=== PATIENT | female | born 1950 | race Caucasian/White ===

== ENCOUNTER 2017-04-07 21:29 | Emergency (ER) | payer MEDICARE, MEDICAID ==
[~2017-04-07] VITALS: Wt 82.1 kg
[~2017-04-07 21:29] MED LIST: AMBIEN10 M1 PO; ASPIRIN81 M1 PO; CEPACOL2 M1 PO; CIPRO500 MG PO; DIFLUCAN150 MG PO; FLAGYL500 MG PO; HYDROCODONE BIT1 T11 PO; HYDRODIURIL25 MG PO; K + POTASSIUM20 MEQ PO; LOVENOX40 MG/0.4 SC; MACRODANTIN100 M1 PO; PAXIL10 MG PO; PERCOCET 325 MG1 TA2 PO; PREDNICOT20 MG PO; PREDNISONE10 MG PO; PRILOSEC20 MG PO; ROBITUSSIN DM 105 ML PO; SYNTHROID,LEV112 MCG PO; ZITHROMAX Z PA250 MG PO; ZOFRAN4 MG PO
[2017-04-07] MEDS ORDERED: NAPROSYN EC375 MG PO (21:56)
[2017-04-07] MEDS ORDERED: NORCO 5-325 TA1 EACH PO (21:56)
[2017-04-08] MEDS ORDERED: NORCO 5-325 TA1 EACH PO (16:53)
== END 2017-04-07 22:42 | disposition home or self-care (01) ==
LOC: ED 21:29
DX: M53.3 Sacrococcygeal disorders, not elsewhere classified (principal); F17.200 Nicotine dependence, unspecified, uncomplicated; Z88.0 Allergy status to penicillin; Z88.8 Allergy status to other drugs, medicaments and biological substances; Z79.82 Long term (current) use of aspirin

== ENCOUNTER 2017-05-04 20:18 | Emergency (ER) | payer MEDICARE, MEDICAID ==
[~2017-05-04] VITALS: Wt 82.1 kg
[~2017-05-04 20:18] MED LIST changes: +NAPROSYN EC375 MG PO; +NORCO 5-325 TA1 EACH PO
[2017-05-04 21:13] LABS: BILIRUBIN 1+ (NEGATIVE); BLOOD NEGATIVE (NEGATIVE); CLARITY CLOUDY (CLEAR); COLOR YELLOW (YELLOW); GLUCOSE NEGATIVE (NEGATIVE); KETONE NEGATIVE (NEGATIVE); LEUKO ESTERASE TRACE (NEGATIVE); NITRITE NEGATIVE (NEGATIVE); SPECIFIC GRAVITY 1.025 (1.005-1.030); UROBILINOGEN 0.2 E.U./dl (0.2-1.0)
[2017-05-04 21:17] LABS: BACTERIA TRACE
[2017-05-04 21:30] LABS: BASO % 0.5 % (0.0-1.0); EOS # 0.2 10*3/uL (0.0-0.4); EOS % 1.9 % (1.0-4.0); HEMATOCRIT 41.3 % (37.0-47.0); HEMOGLOBIN 13.4 g/dl (12.0-16.0); LYMPH # 3.6 10*3/uL (1.3-4.4); LYMPH % 42.7 % (27.0-41.0); MEAN CELL VOLUME 94.5 fl (81.0-99.0); MEAN CORPUSCULAR HGB 30.7 pg (27.0-31.0); MEAN CORPUSCULAR HGB CONC 32.4 g/dl (33.0-37.0); MEAN PLATELET VOLUME 10.5 fl (9.6-12.3); MONO # 0.6 10*3/uL (0.1-1.0); MONO % 6.5 % (3.0-9.0); NEUT # 4.1 10*3/uL (2.3-7.9); NEUT % 48.2 % (47.0-73.0); PLATELET COUNT AUTOMATED 188 10*3/uL (130-400); RED BLOOD COUNT 4.37 10*6/uL (4.10-5.10); RED CELL DISTRI WIDTH 12.7 % (0-14.5); WHITE BLOOD COUNT 8.5 10*3/uL (4.8-10.8)
[2017-05-04 21:45] LABS: ALBUMIN 3.7 gm/dl (3.1-4.5); ALKALINE PHOSPHATASE 79 U/L (45-117); BUN 13 mg/dl (7-24); CHLORIDE 105 mmol/L (98-107); CREATININE 0.89 mg/dL (0.55-1.02); POTASSIUM 3.8 mmol/L (3.5-5.1); SGOT/AST 11 IU/L (3-35); SGPT/ALT 16 U/L (12-78); SODIUM 139 mmol/L (136-145); TOTAL PROTEIN 7.1 gm/dL (6.4-8.2)
[2017-05-04] MEDS ORDERED: CIPRO500 MG PO (22:12)
[2017-05-04] MEDS ORDERED: NORCO 5-325 TA1 EACH PO (22:12)
== END 2017-05-04 22:38 | disposition home or self-care (01) ==
LOC: ED 20:18
PROVIDERS: Physician Assistant
DX: N39.0 Urinary tract infection, site not specified (principal); M54.5 Low back pain; F17.200 Nicotine dependence, unspecified, uncomplicated; Z79.82 Long term (current) use of aspirin; Z79.899 Other long term (current) drug therapy; Z88.0 Allergy status to penicillin; Z88.6 Allergy status to analgesic agent

== ENCOUNTER 2017-05-23 17:56 | Emergency (ER) | payer MEDICARE ==
[~2017-05-23] VITALS: Ht 160 cm; Wt 81.6 kg
[2017-05-23 18:42] LABS: BASO % 0.4 % (0.0-1.0); EOS # 0.2 10*3/uL (0.0-0.4); EOS % 1.9 % (1.0-4.0); HEMATOCRIT 33.6 % (37.0-47.0); HEMOGLOBIN 11.1 g/dl (12.0-16.0); LYMPH # 2.9 10*3/uL (1.3-4.4); LYMPH % 35.1 % (27.0-41.0); MEAN CELL VOLUME 93.1 fl (81.0-99.0); MEAN CORPUSCULAR HGB 30.7 pg (27.0-31.0); MEAN PLATELET VOLUME 10.3 fl (9.6-12.3); MONO # 0.5 10*3/uL (0.1-1.0); MONO % 6.2 % (3.0-9.0); NEUT # 4.6 10*3/uL (2.3-7.9); NEUT % 55.9 % (47.0-73.0); PLATELET COUNT AUTOMATED 197 10*3/uL (130-400); RED BLOOD COUNT 3.61 10*6/uL (4.10-5.10); RED CELL DISTRI WIDTH 12.3 % (0-14.5); WHITE BLOOD COUNT 8.2 10*3/uL (4.8-10.8)
[2017-05-23 18:55] LABS: ALBUMIN 3.1 gm/dl (3.1-4.5); ALKALINE PHOSPHATASE 70 U/L (45-117); BUN 13 mg/dl (7-24); CHLORIDE 109 mmol/L (98-107); CREATININE 0.73 mg/dL (0.55-1.02); POTASSIUM 3.6 mmol/L (3.5-5.1); SGOT/AST 10 IU/L (3-35); SGPT/ALT 14 U/L (12-78); SODIUM 142 mmol/L (136-145); TOTAL PROTEIN 6.5 gm/dL (6.4-8.2)
[2017-05-23] MEDS ORDERED: DOXYCYCLINE100 M3 PO (20:22)
[2017-05-23] MEDS ORDERED: CLARITIN10 MG PO (20:22)
[2017-05-23] MEDS ORDERED: CHERATUSSIN AC118 M1 PO (20:22)
== END 2017-05-23 20:12 | disposition home or self-care (01) ==
LOC: ED 17:56
PROVIDERS: Nurse Practitioner
DX: J40 Bronchitis, not specified as acute or chronic (principal); Z88.0 Allergy status to penicillin; Z79.82 Long term (current) use of aspirin; F17.210 Nicotine dependence, cigarettes, uncomplicated

== ENCOUNTER → 2017-09-11 | Outpatient (CLI) | payer MEDICARE ==
[~2017-09-11] MED LIST changes: +CHERATUSSIN AC118 M1 PO; +CLARITIN10 MG PO; +DOXYCYCLINE100 M3 PO
== END | disposition home or self-care (01) ==
LOC: RAD 16:09
DX: M25.552 Pain in left hip (principal); Z96.642 Presence of left artificial hip joint

== ENCOUNTER → 2018-01-05 | Day surgery (SDC) | payer MEDICARE ==
[~2018-01-05] VITALS: Ht 160 cm; Wt 89.4 kg
[~2018-01-05] MED LIST changes: +IBU800 MG PO; +NICODERM CQ1 EAC2 TD; +OMEPRAZOLE40 MG PO; -PRILOSEC20 MG PO; -SYNTHROID,LEV112 MCG PO; +SYNTHROID,LEV125 MCG PO; +TRAZODONE50 MG PO; +ZOCOR40 MG PO
--- NOTE | ~2018-01-05 | PROC NOTE ---
[place], [place] PROCEDURE NOTE NAME: [facility]NAS [id number] UNIT #: [id number] ROOM: DOCTOR: JUAN DAVID TIRADO MD BIRTHDATE: [birth year] DOS: 01/05/2018 PREOPERATIVE DIAGNOSIS: History of colonic polyps. POSTOPERATIVE DIAGNOSES: Diverticulosis, colonic polyps x 4. PROCEDURE: Colonoscopy with polypectomy x 4. ENDOSCOPIST: Juan David Tirado MD LEGAL RESEARCHER: ALO. ANESTHESIA: MAC. INDICATIONS: This is a 67-year-old lady who had a past history of colonic polyps that were removed during a colonoscopy in 2008, who is here for another examination. The procedure and its complications were explained to the patient in detail preoperatively. Complications that were discussed included but were not limited to bleeding, missed lesions, colonic perforation and prolonged pain. She agreed to proceed. DESCRIPTION OF PROCEDURE: After identifying the patient, the patient was brought to the endoscopy suite and placed in the left lateral position. After IV sedation was administered by the anesthesia team, a timeout procedure was called and a digital rectal exam was performed. An adult colonoscope was now introduced into the anal canal and advanced sequentially into the rectum, sigmoid colon, descending colon, transverse colon and ascending colon, up to the cecum. Upon reaching the cecum, the scope was withdrawn. Total withdrawal time was approximately 10 minutes. Four polyps were removed. There was a first polyp that was seen at 100 cm from the anal verge that was removed with the help of biopsy forceps and sent for histopathological diagnosis. Upon further withdrawal, another polyp was seen at 60 cm from the anal verge and this was also removed with the help of biopsy forceps and sent for histopathological diagnosis. Upon further withdrawal of the scope, sigmoid diverticulosis was encountered with no complications. A polyp was visualized at 28 cm, which was removed with the help of a polypectomy forceps and sent for histopathological diagnosis. A larger polyp was also encountered in the same region at 28 cm from the anal verge, which was removed with the help of a snare and sent for histopathological diagnosis. Hemostasis was confirmed. Thereafter, the scope was withdrawn and the patient was taken to the recovery room in stable fashion. Based on these findings, the patient is recommended to have another colonoscopy in the next 1-3 years. I will talk to the patient about this in the postoperative visit. These findings were discussed with the patient's niece in the postoperative recovery room. [place], [place] PROCEDURE NOTE NAME: EDWINA CANAS UNIT #: [id number] ROOM: DOCTOR: JUAN DAVID TIRADO MD BIRTHDATE: [birth year] Juan David Tirado MD CM:PROCNOTE:PROCEDURE NOTE [id number] JUAN DAVID TIRADO MD
[2018-01-05 07:12] VITALS: BP 140/53
[2018-01-05 07:50] VITALS: BP 134/53
[2018-01-05 08:00] VITALS: BP 142/45
[2018-01-05 08:16] VITALS: BP 153/69
== END | disposition home or self-care (01) ==
LOC: SDC 01-03 08:00
DX: Z12.11 Encounter for screening for malignant neoplasm of colon (principal); D12.5 Benign neoplasm of sigmoid colon; D12.3 Benign neoplasm of transverse colon; D12.4 Benign neoplasm of descending colon; K63.5 Polyp of colon; I10 Essential (primary) hypertension; E07.9 Disorder of thyroid, unspecified; K21.9 Gastro-esophageal reflux disease without esophagitis; H40.9 Unspecified glaucoma; F17.210 Nicotine dependence, cigarettes, uncomplicated; F32.9 Major depressive disorder, single episode, unspecified; F41.9 Anxiety disorder, unspecified; Z88.0 Allergy status to penicillin; Z87.01 Personal history of pneumonia (recurrent); Z86.010 Personal history of colon polyps; Z98.890 Other specified postprocedural states; Z82.49 Family history of ischemic heart disease and other diseases of the circulatory system; Z79.899 Other long term (current) drug therapy; Z96.643 Presence of artificial hip joint, bilateral

== ENCOUNTER → 2018-04-25 | Outpatient (CLI) | payer MEDICARE ==
[~2018-04-25] MED LIST changes: +LEVOXYL112 MCG PO; +VITAMIN D-32000 UNIT PO
--- NOTE | ~2018-04-25 | EKG ---
[place], [place] ELECTROCARDIOGRAM REPORT NAME: EDWINA CANAS UNIT #: [id number] ROOM: DOCTOR: EPIPHANY DRAFT REPORT BIRTHDATE: [birth year] [facility] Test Date: 2018-04-25 Test Time: 11:39:54 Pat Name: EDWINA CANAS Department: Room: [facility] Gender: F Electronic Field Service Engineer: Janie Wesley : 1950 Requested By: RENZO MARTINS Order Number: [id number] Reading MD: Castillo Crabtree MD Measurements Intervals [place] Rate: 60 P: 49 CA: 158 QRS: 46 QRSD: 94 T: 56 QT: 416 QTc: 416 Interpretive Statements Sinus rhythm Low voltage, precordial leads Baseline wander in lead(s) V5,n Electronically Signed On 05-01-2018 4:58:57 PDT by Castillo Crabtree MD CM:EKGRPT:ELECTROCARDIOGRAM REPORT [id number] RENZO MARTINS EPIPHANY DRAFT REPORT RENZO MARTINS
== END | disposition home or self-care (01) ==
LOC: CARD 11:12
DX: R06.2 Wheezing (principal); I10 Essential (primary) hypertension; Z72.0 Tobacco use

== ENCOUNTER → 2018-05-21 | Outpatient (CLI) | payer MEDICARE | END | disposition home or self-care (01) | LOC: ORTHO 00:37 | DX: M47.896 Other spondylosis, lumbar region (principal); M16.11 Unilateral primary osteoarthritis, right hip ==

== ENCOUNTER → 2018-06-01 | Outpatient (CLI) | payer MEDICARE | END | disposition home or self-care (01) | LOC: MRI 05-25 13:00 | DX: M16.11 Unilateral primary osteoarthritis, right hip (principal); R20.0 Anesthesia of skin; R20.2 Paresthesia of skin; M25.551 Pain in right hip ==

== ENCOUNTER → 2018-06-14 | Outpatient (CLI) | payer MEDICARE | END | disposition home or self-care (01) | LOC: MRI 13:01 | DX: M48.061 Spinal stenosis, lumbar region without neurogenic claudication (principal); M51.26 Other intervertebral disc displacement, lumbar region; M47.896 Other spondylosis, lumbar region; M19.90 Unspecified osteoarthritis, unspecified site; M79.651 Pain in right thigh; Z96.642 Presence of left artificial hip joint ==

== ENCOUNTER → 2020-03-19 | Outpatient (CLI) | payer MEDICARE | END | disposition home or self-care (01) | LOC: RAD 10:18 | DX: M16.11 Unilateral primary osteoarthritis, right hip (principal); M85.68 Other cyst of bone, other site; M25.751 Osteophyte, right hip ==

== ENCOUNTER → 2020-05-15 | Outpatient (CLI) | payer MEDICARE | END | disposition home or self-care (01) | LOC: CARD 10:14 | PROVIDERS: ATTEND Nurse Practitioner Family | DX: M25.551 Pain in right hip (principal); E03.9 Hypothyroidism, unspecified; E78.00 Pure hypercholesterolemia, unspecified; Z72.0 Tobacco use ==

== ENCOUNTER → 2020-06-15 | Outpatient (CLI) | payer MEDICARE ==
[~2020-06-15] MED LIST changes: +ASPIRIN ADULT L81 M2 PO; +HYDROXYZINE HCL25 MG PO; +MELOXICAM15 MG PO; +PERCOCET 7.5-31 EACH PO; +ROPINIROLE HY0.25 MG PO; +VITAMIN D3125 MC1 PO
== END | disposition home or self-care (01) ==
LOC: COVID19 00:54
PROVIDERS: ATTEND Orthopaedic Surgery
DX: Z20.828 Contact with and (suspected) exposure to other viral communicable diseases (principal)

== ENCOUNTER 2020-06-18 05:15 | Inpatient (IN) | payer MEDICARE ==
[~2020-06-18] VITALS: Ht 160 cm; Wt 92.0 kg
[2020-06-18] VITALS (10 sets, daily range): BP systolic 114–152; BP diastolic 50–63
[~2020-06-18 05:15] MED LIST changes: -ASPIRIN ADULT L81 M2 PO; -PERCOCET 7.5-31 EACH PO; -ROPINIROLE HY0.25 MG PO; -VITAMIN D3125 MC1 PO
[2020-06-19] VITALS: BP 137/55
[2020-06-19 06:33] LABS: BASO % 0.3 % (0.0-1.0); EOS % 0.4 % (1.0-4.0); HEMATOCRIT 35.3 % (37.0-47.0); LYMPH # 1.3 10*3/uL (1.3-4.4); LYMPH % 14.6 % (27.0-41.0); MEAN CELL VOLUME 86.5 fl (81.0-99.0); MEAN CORPUSCULAR HGB 27.7 pg (27.0-31.0); MEAN PLATELET VOLUME 10.5 fl (9.6-12.3); MONO # 0.9 10*3/uL (0.1-1.0); MONO % 9.3 % (3.0-9.0); NEUT # 6.8 10*3/uL (2.3-7.9); NEUT % 75.1 % (47.0-73.0); PLATELET COUNT AUTOMATED 119 10*3/uL (130-400); RED BLOOD COUNT 4.08 10*6/uL (4.10-5.10); RED CELL DISTRI WIDTH 14.1 % (0-14.5); WHITE BLOOD COUNT 9.1 10*3/uL (4.8-10.8)
[2020-06-19 07:03] LABS: BUN 8 mg/dl (7-24); CHLORIDE 102 mmol/L (98-107); CREATININE 0.74 mg/dL (0.55-1.02); SODIUM 132 mmol/L (136-145)
[2020-06-19 08:00] VITALS: BP 134/52
[2020-06-19 12:00] VITALS: BP 146/49
[2020-06-19 16:00] VITALS: BP 138/57
[2020-06-19 20:00] VITALS: BP 160/59
[2020-06-20] VITALS: BP 137/58
[2020-06-20 06:25] LABS: BASO % 0.3 % (0.0-1.0); EOS # 0.1 10*3/uL (0.0-0.4); EOS % 0.8 % (1.0-4.0); HEMATOCRIT 32.7 % (37.0-47.0); LYMPH # 1.6 10*3/uL (1.3-4.4); LYMPH % 17.5 % (27.0-41.0); MEAN CELL VOLUME 87.4 fl (81.0-99.0); MEAN CORPUSCULAR HGB 28.3 pg (27.0-31.0); MEAN CORPUSCULAR HGB CONC 32.4 g/dl (33.0-37.0); MEAN PLATELET VOLUME 10.3 fl (9.6-12.3); MONO % 11.1 % (3.0-9.0); NEUT # 6.4 10*3/uL (2.3-7.9); PLATELET COUNT AUTOMATED 103 10*3/uL (130-400); RED BLOOD COUNT 3.74 10*6/uL (4.10-5.10); RED CELL DISTRI WIDTH 14.2 % (0-14.5); WHITE BLOOD COUNT 9.1 10*3/uL (4.8-10.8)
[2020-06-20 06:39] LABS: BUN 9 mg/dl (7-24); CHLORIDE 102 mmol/L (98-107); CREATININE 0.67 mg/dL (0.55-1.02); POTASSIUM 4.2 mmol/L (3.5-5.1); SODIUM 133 mmol/L (136-145)
[2020-06-20 08:00] VITALS: BP 116/42
[2020-06-20 12:00] VITALS: BP 129/63
[2020-06-20 16:00] VITALS: BP 131/68
[2020-06-20 20:00] VITALS: BP 146/64
[2020-06-21] VITALS: BP 137/51
[2020-06-21 06:53] LABS: BASO % 0.5 % (0.0-1.0); EOS # 0.1 10*3/uL (0.0-0.4); EOS % 1.2 % (1.0-4.0); HEMATOCRIT 32.7 % (37.0-47.0); LYMPH # 1.7 10*3/uL (1.3-4.4); LYMPH % 21.3 % (27.0-41.0); MEAN CELL VOLUME 87.2 fl (81.0-99.0); MEAN CORPUSCULAR HGB CONC 32.1 g/dl (33.0-37.0); MEAN PLATELET VOLUME 11.6 fl (9.6-12.3); MONO # 0.9 10*3/uL (0.1-1.0); MONO % 11.1 % (3.0-9.0); NEUT # 5.3 10*3/uL (2.3-7.9); NEUT % 65.5 % (47.0-73.0); PLATELET COUNT AUTOMATED 113 10*3/uL (130-400); RED BLOOD COUNT 3.75 10*6/uL (4.10-5.10)
[2020-06-21 08:00] VITALS: BP 114/59
[2020-06-21 12:00] VITALS: BP 122/45
[2020-06-21 16:00] VITALS: BP 124/49
[2020-06-21 20:00] VITALS: BP 142/59
[2020-06-22] VITALS: BP 132/47
[2020-06-22 06:30] LABS: BASO % 0.5 % (0.0-1.0); EOS # 0.2 10*3/uL (0.0-0.4); EOS % 3.1 % (1.0-4.0); HEMATOCRIT 31.5 % (37.0-47.0); LYMPH # 1.7 10*3/uL (1.3-4.4); LYMPH % 29.1 % (27.0-41.0); MEAN CELL VOLUME 88.2 fl (81.0-99.0); MEAN CORPUSCULAR HGB 28.6 pg (27.0-31.0); MEAN CORPUSCULAR HGB CONC 32.4 g/dl (33.0-37.0); MEAN PLATELET VOLUME 10.6 fl (9.6-12.3); MONO # 0.8 10*3/uL (0.1-1.0); MONO % 12.9 % (3.0-9.0); NEUT # 3.2 10*3/uL (2.3-7.9); NEUT % 54.1 % (47.0-73.0); PLATELET COUNT AUTOMATED 145 10*3/uL (130-400); RED BLOOD COUNT 3.57 10*6/uL (4.10-5.10); RED CELL DISTRI WIDTH 13.6 % (0-14.5); WHITE BLOOD COUNT 5.9 10*3/uL (4.8-10.8)
[2020-06-22 08:00] VITALS: BP 151/52
[2020-06-22 12:00] VITALS: BP 134/52
[2020-06-22] MEDS ORDERED: PERCOCET 7.5-31 EACH PO (12:09)
[2020-06-22] MEDS ORDERED: VITAMIN D3125 MC1 PO (12:09)
[2020-06-22] MEDS ORDERED: ASPIRIN ADULT L81 M2 PO (12:09)
[2020-06-22] MEDS ORDERED: ROPINIROLE HY0.25 MG PO (12:09)
== END 2020-06-22 14:29 | disposition other institution (70) | DRG 470 ==
LOC: SDC 05:15 → 4E 06:50 → SDC 07:30 → 4E 07:45 → SDC 08:30 → 4E 17:37
PROVIDERS: Internal Medicine; Orthopaedic Surgery; ADMIT Family Medicine; ATTEND Family Medicine
PROC: 0SR90JZ Replacement of Right Hip Joint with Synthetic Substitute, Open Approach (ICD-10-PCS; principal; 2020-06-18)
DX: M16.11 Unilateral primary osteoarthritis, right hip (principal); E87.1 Hypo-osmolality and hyponatremia; K21.9 Gastro-esophageal reflux disease without esophagitis; R73.9 Hyperglycemia, unspecified; E03.9 Hypothyroidism, unspecified; Z96.642 Presence of left artificial hip joint; F17.210 Nicotine dependence, cigarettes, uncomplicated; E55.9 Vitamin D deficiency, unspecified; E78.5 Hyperlipidemia, unspecified; Z47.1 Aftercare following joint replacement surgery; Z82.49 Family history of ischemic heart disease and other diseases of the circulatory system; Z88.0 Allergy status to penicillin; Z88.8 Allergy status to other drugs, medicaments and biological substances; Z79.899 Other long term (current) drug therapy

== ENCOUNTER → 2020-07-09 | Outpatient (CLI) | payer MEDICARE ==
[~2020-07-09] MED LIST changes: +ASPIRIN ADULT L81 M2 PO; +PERCOCET 7.5-31 EACH PO; +ROPINIROLE HY0.25 MG PO; +VITAMIN D3125 MC1 PO
== END | disposition home or self-care (01) ==
LOC: ORTHO 00:32
PROVIDERS: ATTEND Orthopaedic Surgery
DX: M25.551 Pain in right hip (principal); Z96.641 Presence of right artificial hip joint

== ENCOUNTER → 2020-07-31 | Outpatient (CLI) | payer MEDICARE | END | disposition home or self-care (01) | LOC: ORTHO 00:09 | PROVIDERS: ATTEND Orthopaedic Surgery | DX: Z09 Encounter for follow-up examination after completed treatment for conditions other than malignant neoplasm (principal); Z96.641 Presence of right artificial hip joint ==

== ENCOUNTER → 2020-08-27 | Outpatient (CLI) | payer MEDICARE | END | disposition home or self-care (01) | LOC: RAD 13:08 | PROVIDERS: ATTEND Nurse Practitioner Family | DX: M25.511 Pain in right shoulder (principal) ==

== ENCOUNTER → 2020-09-11 | Outpatient (CLI) | payer MEDICARE ==
[~2020-09-11] MED LIST changes: +HYDROCODONE-AC1 EAC1 PO
== END | disposition home or self-care (01) ==
LOC: ORTHO 00:53
PROVIDERS: ATTEND Orthopaedic Surgery
DX: Z47.1 Aftercare following joint replacement surgery (principal); Z98.890 Other specified postprocedural states

== ENCOUNTER → 2020-10-27 | Outpatient (CLI) | payer MEDICARE ==
[2020-10-27 18:54] LABS: IRON 78 ug/dL (50-170); TOTAL IRON BINDING CAPACITY 436 ug/dl (250-450)
== END | disposition home or self-care (01) ==
LOC: LAB 17:57
PROVIDERS: ATTEND Nurse Practitioner Family
DX: R79.89 Other specified abnormal findings of blood chemistry (principal)

== ENCOUNTER 2020-11-07 13:32 | Emergency (ER) | payer MEDICARE ==
[~2020-11-07] VITALS: Ht 160 cm; Wt 90.3 kg
[~2020-11-07 13:32] MED LIST changes: -HYDROCODONE-AC1 EAC1 PO
[2020-11-07] MEDS ORDERED: HYDROCODONE-AC1 EAC1 PO ×2 (15:31→15:33)
== END 2020-11-07 15:37 | disposition home or self-care (01) ==
LOC: ED 13:32
DX: S46.911A Strain of unspecified muscle, fascia and tendon at shoulder and upper arm level, right arm, initial encounter (principal); Z88.8 Allergy status to other drugs, medicaments and biological substances; Z88.0 Allergy status to penicillin; Z79.899 Other long term (current) drug therapy; Z79.82 Long term (current) use of aspirin; Z98.890 Other specified postprocedural states; Z96.642 Presence of left artificial hip joint; X58.XXXA Exposure to other specified factors, initial encounter; Y93.89 Activity, other specified; Y92.89 Other specified places as the place of occurrence of the external cause; Y99.8 Other external cause status

== ENCOUNTER → 2020-11-09 | Outpatient (CLI) | payer MEDICARE ==
[~2020-11-09] MED LIST changes: +HYDROCODONE-AC1 EAC1 PO
== END | disposition home or self-care (01) ==
LOC: MRI 08:34
PROVIDERS: ATTEND Nurse Practitioner Family
DX: G89.29 Other chronic pain (principal); M25.511 Pain in right shoulder; R93.6 Abnormal findings on diagnostic imaging of limbs; M75.101 Unspecified rotator cuff tear or rupture of right shoulder, not specified as traumatic; M19.011 Primary osteoarthritis, right shoulder

== ENCOUNTER → 2020-12-11 | Outpatient (CLI) | payer MEDICARE | END | disposition home or self-care (01) | LOC: ORTHO 01:18 | PROVIDERS: ATTEND Orthopaedic Surgery | DX: M19.011 Primary osteoarthritis, right shoulder (principal); Z96.641 Presence of right artificial hip joint ==

== ENCOUNTER → 2021-06-10 | Day surgery (SDC) | payer MEDICARE ==
[~2021-06-10] VITALS: Ht 160 cm; Wt 93.9 kg
[~2021-06-10] MED LIST changes: +FERROUS SULFAT325 MG PO
[2021-06-10 07:13] VITALS: BP 143/51; BP 146/55
[2021-06-10 08:04] VITALS: BP 127/66
[2021-06-10 08:19] VITALS: BP 136/65
== END | disposition home or self-care (01) ==
LOC: SDC 06-07 08:45
PROVIDERS: ATTEND Surgery
DX: Z12.11 Encounter for screening for malignant neoplasm of colon (principal); D12.2 Benign neoplasm of ascending colon; D12.4 Benign neoplasm of descending colon; D12.3 Benign neoplasm of transverse colon; D12.8 Benign neoplasm of rectum; Z86.010 Personal history of colon polyps; I10 Essential (primary) hypertension; K21.9 Gastro-esophageal reflux disease without esophagitis; E03.9 Hypothyroidism, unspecified; F41.9 Anxiety disorder, unspecified; E78.00 Pure hypercholesterolemia, unspecified; F32.9 Major depressive disorder, single episode, unspecified; Z96.642 Presence of left artificial hip joint; Z79.899 Other long term (current) drug therapy; Z20.822 Contact with and (suspected) exposure to COVID-19

== ENCOUNTER → 2021-10-29 | Outpatient (CLI) | payer MEDICARE ==
[~2021-10-29] VITALS: Ht 160 cm; Wt 93.4 kg
[2021-10-29 13:51] VITALS: BP 154/54
== END | disposition home or self-care (01) ==
LOC: COVID19 00:31 → SDC 13:15 → COVID19 11-01 00:31 → SDC 11-01 00:31 → EDSTATUS 11-01 13:15 → SDC 04-03 13:15
PROVIDERS: ATTEND Surgery
DX: Z20.822 Contact with and (suspected) exposure to COVID-19 (principal)

== ENCOUNTER → 2021-11-29 | Day surgery (SDC) | payer MEDICARE ==
[2021-11-25 13:09] VITALS: BP 141/55
[~2021-11-29] VITALS: Ht 160 cm; Wt 93.9 kg
[~2021-11-29] MED LIST changes: +COLACE100 MG PO; +MELATONIN10 M4 PO; +PERCOCET 5-3251 EACH PO
[2021-11-29 08:56] VITALS: BP 148/50
[2021-11-29 11:22] VITALS: BP 154/70
[2021-11-29 11:37] VITALS: BP 178/67
[2021-11-29 11:53] VITALS: BP 144/75
[2021-11-29 12:12] VITALS: BP 174/72
== END | disposition home or self-care (01) ==
LOC: SDC 10-29 13:15
PROVIDERS: ATTEND Surgery
DX: K80.10 Calculus of gallbladder with chronic cholecystitis without obstruction (principal); K21.9 Gastro-esophageal reflux disease without esophagitis; F32.9 Major depressive disorder, single episode, unspecified; E03.9 Hypothyroidism, unspecified; Z96.643 Presence of artificial hip joint, bilateral; I10 Essential (primary) hypertension; E78.00 Pure hypercholesterolemia, unspecified; F41.9 Anxiety disorder, unspecified; Z79.899 Other long term (current) drug therapy

== ENCOUNTER → 2022-05-13 | Outpatient (CLI) | payer MEDICARE ==
[2022-05-13 11:59] LABS: BASO % 0.5 % (0.0-1.0); EOS # 0.1 10*3/uL (0.0-0.4); EOS % 2.4 % (1.0-4.0); HEMATOCRIT 38.9 % (37.0-47.0); LYMPH # 1.2 10*3/uL (1.3-4.4); LYMPH % 32.8 % (27.0-41.0); MEAN CELL VOLUME 86.4 fl (81.0-99.0); MEAN CORPUSCULAR HGB 27.3 pg (27.0-31.0); MEAN CORPUSCULAR HGB CONC 31.6 g/dl (33.0-37.0); MEAN PLATELET VOLUME 10.5 fl (9.6-12.3); MONO # 0.3 10*3/uL (0.1-1.0); NEUT # 2.1 10*3/uL (2.3-7.9); PLATELET COUNT AUTOMATED 124 10*3/uL (130-400); RED CELL DISTRI WIDTH 14.7 % (0-14.5); WHITE BLOOD COUNT 3.8 10*3/uL (4.8-10.8)
[2022-05-13 12:14] LABS: ALKALINE PHOSPHATASE 93 U/L (45-117); BUN 7 mg/dl (7-24); CHLORIDE 107 mmol/L (98-107); CHOLESTEROL 141 mg/dL (<200); CREATININE 0.82 mg/dL (0.55-1.02); LDL CHOLESTEROL 74 mg/dL (9-159); POTASSIUM 4.6 mmol/L (3.5-5.1); SGOT/AST 21 IU/L (3-35); SGPT/ALT 23 U/L (12-78); SODIUM 139 mmol/L (136-145); TOTAL PROTEIN 7.4 gm/dL (6.4-8.2); TRIGLYCERIDES 127 mg/dl (<150)
== END | disposition home or self-care (01) ==
LOC: LAB 11:17
PROVIDERS: ATTEND Nurse Practitioner Family
DX: E03.9 Hypothyroidism, unspecified (principal); K21.9 Gastro-esophageal reflux disease without esophagitis; J45.20 Mild intermittent asthma, uncomplicated; K80.80 Other cholelithiasis without obstruction

== ENCOUNTER → 2022-08-30 | Outpatient (CLI) | payer MEDICARE | END | disposition home or self-care (01) | LOC: LAB 13:06 | PROVIDERS: ATTEND Nurse Practitioner Family | DX: D50.9 Iron deficiency anemia, unspecified (principal); D51.9 Vitamin B12 deficiency anemia, unspecified; E03.9 Hypothyroidism, unspecified ==

== ENCOUNTER → 2022-09-26 | Day surgery (SDC) | payer MEDICARE ==
[~2022-09-26] VITALS: Ht 160 cm; Wt 94.8 kg
[~2022-09-26] MED LIST changes: +ASPIRIN CHEWABL81 MG PO; +CARAFATE1 G1 PO
[2022-09-26 08:00] VITALS: BP 163/56
[2022-09-26 09:04] VITALS: BP 160/84
[2022-09-26 09:16] VITALS: BP 174/72
[2022-09-26 09:34] VITALS: BP 176/88
== END | disposition home or self-care (01) ==
LOC: SDC 09-22 14:00
PROVIDERS: ATTEND Surgery
DX: D64.9 Anemia, unspecified (principal); D12.2 Benign neoplasm of ascending colon; K57.30 Diverticulosis of large intestine without perforation or abscess without bleeding; K29.50 Unspecified chronic gastritis without bleeding; F32.A Depression, unspecified; F41.9 Anxiety disorder, unspecified; K21.9 Gastro-esophageal reflux disease without esophagitis; Z86.010 Personal history of colon polyps; E78.00 Pure hypercholesterolemia, unspecified; E03.9 Hypothyroidism, unspecified; Z87.891 Personal history of nicotine dependence; Z96.643 Presence of artificial hip joint, bilateral; Z88.0 Allergy status to penicillin; Z88.8 Allergy status to other drugs, medicaments and biological substances; Z79.899 Other long term (current) drug therapy

== ENCOUNTER → 2022-10-03 | Outpatient (CLI) | payer MEDICARE | END | disposition home or self-care (01) | LOC: RAD 14:27 | PROVIDERS: ATTEND Nurse Practitioner Family | DX: J02.9 Acute pharyngitis, unspecified (principal); Z20.822 Contact with and (suspected) exposure to COVID-19 ==

== ENCOUNTER → 2022-10-17 | Outpatient (CLI) | payer MEDICARE ==
[2022-10-17 14:43] LABS: LDH 170 U/L (120-246)
== END | disposition home or self-care (01) ==
LOC: LAB 13:53
PROVIDERS: ATTEND Internal Medicine
DX: D50.8 Other iron deficiency anemias (principal); D70.8 Other neutropenia; D69.6 Thrombocytopenia, unspecified

== ENCOUNTER → 2022-12-06 | Outpatient (CLI) | payer MEDICARE ==
[2022-12-06 12:51] LABS: BASO % 0.7 % (0.0-1.0); EOS # 0.1 10*3/uL (0.0-0.4); EOS % 4.5 % (1.0-4.0); HEMATOCRIT 40.8 % (37.0-47.0); LYMPH # 1.1 10*3/uL (1.3-4.4); LYMPH % 36.6 % (27.0-41.0); MEAN CELL VOLUME 89.3 fl (81.0-99.0); MEAN CORPUSCULAR HGB 29.8 pg (27.0-31.0); MEAN CORPUSCULAR HGB CONC 33.3 g/dl (33.0-37.0); MEAN PLATELET VOLUME 10.1 fl (9.6-12.3); MONO # 0.3 10*3/uL (0.1-1.0); NEUT # 1.4 10*3/uL (2.3-7.9); NEUT % 49.2 % (47.0-73.0); PLATELET COUNT AUTOMATED 96 10*3/uL (130-400); RED BLOOD COUNT 4.57 10*6/uL (4.10-5.10); RED CELL DISTRI WIDTH 15.4 % (0-14.5); WHITE BLOOD COUNT 2.9 10*3/uL (4.8-10.8)
[2022-12-06 13:37] LABS: ALKALINE PHOSPHATASE 82 U/L (46-116); BUN 7 mg/dl (9-23); CHLORIDE 104 mmol/L (98-107); CHOLESTEROL 136 mg/dL (<200); LDL CHOLESTEROL 51 mg/dL (9-159); POTASSIUM 4.5 mmol/L (3.4-5.1); SGPT/ALT 25 U/L (10-49); THYROID STIM HORMONE (HS) 2.022 uIU/ml (0.550-4.780); TOTAL PROTEIN 6.8 gm/dL (6.0-8.0); TRIGLYCERIDES 162 mg/dl (<150)
== END | disposition home or self-care (01) ==
LOC: LAB 12:18
PROVIDERS: ATTEND Nurse Practitioner Family
DX: I10 Essential (primary) hypertension (principal); E78.00 Pure hypercholesterolemia, unspecified; E03.9 Hypothyroidism, unspecified

== ENCOUNTER → 2023-04-14 | Outpatient (CLI) | payer MEDICARE ==
[2023-04-14 13:29] LABS: BASO % 0.5 % (0.0-1.0); EOS # 0.1 10*3/uL (0.0-0.4); EOS % 1.9 % (1.0-4.0); HEMATOCRIT 40.6 % (37.0-47.0); LYMPH # 1.1 10*3/uL (1.3-4.4); LYMPH % 25.5 % (27.0-41.0); MEAN CORPUSCULAR HGB 32.6 pg (27.0-31.0); MEAN CORPUSCULAR HGB CONC 34.7 g/dl (33.0-37.0); MEAN PLATELET VOLUME 9.8 fl (9.6-12.3); MONO # 0.4 10*3/uL (0.1-1.0); MONO % 8.6 % (3.0-9.0); NEUT # 2.7 10*3/uL (2.3-7.9); NEUT % 63.3 % (47.0-73.0); PLATELET COUNT AUTOMATED 118 10*3/uL (130-400); RED BLOOD COUNT 4.32 10*6/uL (4.10-5.10); RED CELL DISTRI WIDTH 12.7 % (0-14.5); WHITE BLOOD COUNT 4.3 10*3/uL (4.8-10.8)
[2023-04-14 14:01] LABS: ALKALINE PHOSPHATASE 80 U/L (46-116); BUN 6 mg/dl (9-23); CHLORIDE 102 mmol/L (98-107); CHOLESTEROL 157 mg/dL (<200); LDL CHOLESTEROL 75 mg/dL (9-159); POTASSIUM 4.7 mmol/L (3.4-5.1); SGPT/ALT 35 U/L (10-49); TOTAL PROTEIN 6.8 gm/dL (6.0-8.0); TRIGLYCERIDES 84 mg/dl (<150)
== END | disposition home or self-care (01) ==
LOC: LAB 13:11
PROVIDERS: ATTEND Nurse Practitioner Family
DX: E03.9 Hypothyroidism, unspecified (principal); E78.00 Pure hypercholesterolemia, unspecified; K21.9 Gastro-esophageal reflux disease without esophagitis; D72.819 Decreased white blood cell count, unspecified; D64.9 Anemia, unspecified; Z72.0 Tobacco use